=== PATIENT | female | born 1965 | race American Indian/Alaskan Native ===

== ENCOUNTER 2017-03-01 14:52 | Outpatient (CLI) | payer OTHER ==
--- NOTE | 2017-03-01 15:33 | Mammography Report ---
Screening mammogram: Routine views demonstrate an intermediate fibroglandular pattern with generally symmetric distribution. In the superior left breast there are couple of asymmetric nodular densities questionable is seen centrally in the CC projection. The breast pattern otherwise appears generally unremarkable. CAD not captured. Impression: Left breast asymmetries. Recommendation: The patient's prior exam is being requested for comparison before final recommendation. BI-RADS CATEGORY: 0 = Needs additional imaging evaluation ACR BI-RADS MAMMOGRAPHIC CODES: 0 = Needs additional imaging evaluation; 1 = Negative; 2 = Benign; 3 = Probably benign; 4 = Suspicious; 5 = Malignant; 6 = Known biopsy-proven malignancy COMMENT: 1. Dense breast tissue, i.e., adenosis, fibrocystic changes, etc., may obscure an underlying neoplasm. 2. Approximately 10% of cancers are not detected with mammography. 3. A negative mammography report should not delay biopsy if a clinically suspicious mass is present.
== END 2017-03-01 14:53 | disposition home or self-care (01) ==
LOC: MAMMO 14:52
PROVIDERS: ATTEND Internal Medicine
DX: Z12.31 Encounter for screening mammogram for malignant neoplasm of breast (principal)
CPT/HCPCS: 77067; G0202